=== PATIENT | female | born 1985 | race American Indian/Alaskan Native ===

== ENCOUNTER 2018-11-02 08:25 | Inpatient (IN) | payer OTHER ==
[2018-11-02] MEDS ORDERED: Lactated Ringer's 1,000 ML IV ONE ×2 (08:40→08:43)
[2018-11-02 08:41] VITALS: BMI 38.0
[2018-11-02] MEDS ORDERED: ceFAZolin 2 GM in Sodium Chloride 0.9% 100 ML IVPB ONE (08:43)
[2018-11-02] MEDS ORDERED: Lactated Ringer's 1,000 ML IV SCH (08:45)
[2018-11-02 09:19] LABS: BASO % 0.6 % (0.0-2.0); EOS # 0.1 K/uL (0.0-0.7); EOS % 0.8 % (0.0-4.0); HEMOGLOBIN 10.4 g/dL (12.0-16.0); LYMPH # 1.5 K/uL (1.0-4.3); LYMPH % 21.4 % (20.0-40.0); MEAN CELL VOLUME 76.3 fl (81.0-99.0); MEAN CORPUSCULAR HGB CONC 31.4 g/dL (33.0-37.0); MEAN PLATELET VOLUME 9.8 fl (7.2-11.7); MONO # 0.5 K/uL (0.0-0.8); MONO % 6.3 % (0.0-10.0); NEUT # 5.1 K/uL (1.8-7.0); NEUT % 70.9 % (50.0-75.0); NRBC % 0.2 % (0.0-0.0); RBC 4.36 Mil/uL (3.80-5.20); RED CELL DISTRIBUTION WIDTH 19.2 % (11.5-14.5); WHITE BLOOD COUNT 7.2 K/uL (4.8-10.8)
[2018-11-02] MEDS ORDERED: Oxytocin 30 UNIT 30 UNITS/500 ML BAG IV ONE (09:36)
[2018-11-02] MEDS ORDERED: OXYTOCIN/0.9 % NS 20 UNIT/1,000 ML BAG IV SCH ×2 (09:45→19:26)
[2018-11-02 10:31] VITALS: O2SAT 100
[2018-11-02] MEDS ORDERED: Morphine 1 mg/ml preservative-free Inj(Duramorph) ONE (11:08)
[2018-11-02] MEDS ORDERED: Oxytocin 10 Units/ml Inj ONE (11:44)
[2018-11-02] MEDS ORDERED: Oxycodone/Acetaminophen 5/325 mg Tab PO PRN ×4 (12:25→19:26)
[2018-11-02] MEDS ORDERED: Simethicone 80 mg Chewtab PO SCH (16:00)
--- NOTE | 2018-11-02 16:02 | OBDS ---
DELIVERY PERSONNEL Delivery Doctor: Aidan Betancourt MD Back Seam Stitcher: Debora Posada RN Anesthesiologist: Dr. Fair MATERNAL INFORMATION Delivery Anesthesia: Spinal Medications in Delivery: Pitocin 30 mu/500 mL LR , Pitcoin 20 mu/1000 mL LR Estimated Blood Loss (ml): 800 Placenta Cultured: No Maternal Complications: None Provider Comments: Primary low flap transverse section Via Pfannenstiel incision. Patient delivered viable infant with Apgars of 9 and 9 at 1 and 5 minutes respectively. Normal ut erus, normal tubes and ovaries bilaterally. Moderate amount of abdominal and pelvic adhesions. Estimated blood loss 800 cc Fluids 2600 cc lactated Ringer's Urine output 200 cc of clear urine No complications. Patient tolerated procedure well. Refer to dictation. LABOR SUMMARY EDC: 11/07/2018 00:00 No. Babies in Womb: 1 Attempted: No Labor Anesthesia: Intrathecal LABOR INFORMATION Reason for Induction: Not Applicable Oxytocin: N/A Group B Beta Strep: Negative Antibiotics # of Doses: 1 Antibiotics Time of Last Dose: 1115 Steroids Given: None Reason Steroids Not Administered: Not Applicable MEMBRANES Membranes Rupture Method: Artificial Rupture of Membranes: 11/02/2018 11:39 Length of Rupture (hrs): 0.02 Amniotic Fluid Color: Clear Amniotic Fluid Amount: Moderate Amniotic Fluid Odor: None STAGES OF LABOR Stage 3 hrs: 0 Stage 3 min: 1 CSECTION DELIVERY Primary Indication: Repeat Elective CSection Urgency: N/A CSection Incidence: Repeat Labor: No Labor Elective: Elective CSection Incision: Lower Uterine Transverse Uterine Closure: Single-layer closure BABY A INFORMATION Infant Delivery Date/Time: 11/02/2018 11:40 Method of Delivery: Born in Route : No : N/A Forceps: N/A Vacuum Extraction: N/A Shoulder Dystocia : No SHOULDER DYSTOCIA BABY A Delivery Date/Time: 11/02/2018 11:40 PRESENTATION/POSITION BABY A Presentation: Cephalic Cephalic Presentation: Vertex Breech Presentation: N/A PLACENTA INFORMATION BABY A Placenta Delivery Time : 11/02/2018 11:41 Placenta Method of Delivery: Expressed Placenta Status: Delivered SCORES BABY A Heart Rate 1 min: >100 bpm Resp Effort 1 min: Good Cry Reflex Irritability 1 min: Cough or Sneeze or Pulls Away Muscle Tone 1 min: Active Motion Color 1 min: Body [place], Extremities Blue Resuscitation Effort 1 min: N/A SCORE 1 MIN: 9 Heart Rate 5 min: >100 bpm Resp Effort 5 min: Good Cry Reflex Irritability 5 min: Cough or Sneeze or Pulls Away Muscle Tone 5 min: Active Motion Color 5 min: Body [place], Extremities Blue Resuscitation Effort 5 min: N/A SCORE 5 MIN: 9 INFANT INFORMATION BABY A Gestational Age at Delivery: 39.2 Gestational Status: Term Outcome : Liveborn Condition : Stable Infant Sex: Male WEIGHT/LENGTH BABY A Infant Birthweight (gms): 3880 Weight (lb): 8 Weight (oz): 9 CORD INFORMATION BABY A No. Cord Vessels: 3 Nuchal Cord : N/A Cord Blood Taken: N/A Infant Suction: Mouth; Nose
[2018-11-02] MEDS: Lactated Ringer's 1,000 ML IV SCH (20:00)
[2018-11-02] MEDS: Simethicone 80 mg Chewtab PO SCH (22:07)
--- NOTE | 2018-11-03 00:33 | OP ---
PROCEDURE DATE: 11/02/2018 PREOPERATIVE DIAGNOSIS: Elective repeat section at 39 weeks' gestational age. POSTOPERATIVE DIAGNOSIS: Elective repeat section at 39 weeks' gestational age. OPERATION PERFORMED: Repeat low-flap transverse section via Pfannenstiel incision. COMPLICATIONS: None. ESTIMATED BLOOD LOSS: 800 mL. FLUIDS: 2600 mL lactated Ringer's. URINE OUTPUT: 200 mL of clear urine at the end of procedure. SURGEON: Yo Betancourt MD IT SENIOR SOFTWARE ENGINEER JAVA: Allison Riley MD. Dr. Riley was present from the beginning of the procedure to the end of procedure. Dr. Riley was integral in exposing the surgical field, controlling intraoperative bleeding, removal of intraoperative adhesions, and manual delivery of the . ANESTHESIOLOGIST: Antionette Fair MD ANESTHESIA: Spinal. COMPLICATIONS: None. DESCRIPTION OF PROCEDURE: The patient was taken to the operating room where spinal anesthesia was found to be adequate. The patient was prepped and draped in a normal sterile fashion in the dorsal supine position with leftward tilt. A Pfannenstiel skin incision was made with a scalpel. This was carried down through to the underlying layer of fascia with the scalpel. Midline dissection was made in the fascial layer with the scalpel. The fascial incision was then extended bilaterally sharply with curved Alfonso scissors. The fascial layer was from the underlying rectus muscles both bluntly and sharply with curved Alfonso scissors. The rectus muscles were at the midline. The peritoneum was then identified, tented up with Alicia clamp x2, and entered sharply with Metzenbaum scissors. This peritoneal incision was then extended superiorly and inferiorly with good visualization of the urinary bladder. The vesicouterine peritoneum was identified, tented up with Alicia clamp x2, and entered sharply with Metzenbaum scissors. This peritoneal incision was then extended bilaterally with Metzenbaum scissors. The bladder flap was created digitally. The [place] retractor was placed over the urinary bladder. The uterus was incised with the scalpel. The uterine incision was extended bilaterally bluntly. The 's head was delivered atraumatically. Nose and mouth were suctioned with bulb suction. The remainder of the was delivered without complication. The cord was clamped and cut. The infant was handed off to awaiting pediatricians. The cord gases were collected. Cord blood was collected. The placenta was removed manually. The uterus was cleared of all clots and debris. The uterine incision was repaired with 0 Vicryl in a running, locked fashion. Re-inspection of the uterine incision proved excellent hemostasis. The abdomen and pelvis were irrigated with copious amounts of warm normal saline. Re-inspection of the uterine incision proved excellent hemostasis. All instruments were removed from the patient. The peritoneal layer was closed with a running stitch of 2-0 chromic. The rectus muscles were reapproximated at the midline with a running stitch of 2-0 chromic. The fascial layer was closed with a running stitch of 0 Vicryl. Subcutaneous tissue was closed with a running stitch of 3-0 plain. The skin was closed with krish. The patient tolerated the procedure well. All sponge, lap, and needle counts were correct x2. The patient was given 2 g of Ancef just prior to the beginning of the procedure. There were no complications. The patient was taken to the recovery room in awake and stable condition. Yo Betancourt MD
[2018-11-03] MEDS: Simethicone 80 mg Chewtab PO SCH ×4 (03:08→22:14)
[2018-11-03] MEDS: Lactated Ringer's 1,000 ML IV SCH (04:00)
[2018-11-03 06:48] LABS: HEMOGLOBIN 8.5 g/dL (12.0-16.0); MEAN CELL VOLUME 76.2 fl (81.0-99.0); MEAN CORPUSCULAR HEMOGLOBIN 24.6 pg (27.0-31.0); MEAN CORPUSCULAR HGB CONC 32.3 g/dL (33.0-37.0); RBC 3.46 Mil/uL (3.80-5.20); WHITE BLOOD COUNT 7.8 K/uL (4.8-10.8)
[2018-11-03] MEDS ORDERED: Multivitamin With Minerals Tab PO SCH (09:00)
[2018-11-03] MEDS: Multivitamin With Minerals Tab PO SCH (09:22)
--- NOTE | 2018-11-04 04:42 | OBPPN ---
Datetime: 11/03/2018 09:30 PP Pain Prov: Within normal limits PP Nausea Prov: Denies PP Flatus Prov: Yes PP BM Prov: No PP Breasts Prov: Not Done PP Heart Prov: Normal PP Lungs Prov: Normal PP Abdomen/Uterus Prov: Normal PP Lochia Prov: Normal PP Vulva/Perineum Prov: Normal PP CVA Tenderness Prov: Normal PP Extremities Prov: Normal PP C/S Incision Prov: Normal PP Impression Prov: Normal progression PP Plan Prov: Continue present management PP Progress Note Prov: Late entry for Nov 03 Pt seen on rounds. She feels fine. She states that she feel better than her other deliveries. Sh e just feels cramping. no incisionsal pain H/H 06/07 A: S/P C/S day 1 Anemia - post op - asymptomatic (starting Hb 10) PLAN: continue post op care Vital Signs Provider PP: Reviewed; Within Normal Limits
[2018-11-04] MEDS: Simethicone 80 mg Chewtab PO SCH ×3 (08:17→22:08)
[2018-11-04] MEDS: Multivitamin With Minerals Tab PO SCH (08:17)
--- NOTE | 2018-11-04 11:30 | OBPPN ---
Datetime: 11/04/2018 11:26 PP Pain Prov: Within normal limits PP Nausea Prov: Denies PP Flatus Prov: Yes PP Breasts Prov: Not Done PP Heart Prov: Normal PP Lungs Prov: Normal PP Abdomen/Uterus Prov: Normal PP Lochia Prov: Not Done PP Vulva/Perineum Prov: Not Done PP CVA Tenderness Prov: Normal PP Extremities Prov: Normal PP Impression Prov: Normal progression PP Plan Prov: Continue present management PP Progress Note Prov: Patient doing nwell pain controlled reports minimal lochia VSS afebrile Incicion c/d/i ext no homans POD 2 OOBTC reg diet analgeisa as needed Vital Signs Provider PP: Reviewed
[2018-11-05] MEDS: Simethicone 80 mg Chewtab PO SCH (05:16)
[2018-11-05] MEDS: Multivitamin With Minerals Tab PO SCH (09:17)
[2018-11-05 19:09] VITALS: BP 119/75; PULSE 85; RESP 19; TEMP 98.1
--- NOTE | 2018-11-06 15:00 | OBPPN ---
Datetime: 11/05/2018 14:58 PP Pain Prov: Within normal limits PP Nausea Prov: Denies PP Flatus Prov: Yes PP BM Prov: Yes PP Breasts Prov: Normal PP Heart Prov: Normal PP Lungs Prov: Normal PP Abdomen/Uterus Prov: Normal PP Lochia Prov: Normal PP Vulva/Perineum Prov: Normal PP CVA Tenderness Prov: Normal PP Extremities Prov: Normal PP C/S Incision Prov: Normal PP Progress Prov: Normal PP Impression Prov: Normal progression PP Plan Prov: Continue present management PP Progress Note Prov: Postop day #3 status post repeat patient recovering well Discharge patient home today postop and instructions Follow-up in office in 1 week IP PP Procedures: None Vital Signs Provider PP: Reviewed; Within Normal Limits
--- NOTE | 2018-11-06 15:05 | OBDCSUM ---
Datetime: 11/04/2018 10:57 Discharge Diagnosis, Provider: Term Delivered
== END 2018-11-05 15:02 | disposition home or self-care (01) | DRG 371 ==
LOC: H.EROB2 08:25 → H.L&D 08:40 → H.OB/GYN 15:01
PROVIDERS: ADMIT Obstetrics & Gynecology; ATTEND Obstetrics & Gynecology
PROC: 10D00Z1 Extraction of Products of Conception, Low, Open Approach (ICD-10-PCS; principal; 2018-11-02)
PROC: 4A1HXCZ Monitoring of Products of Conception, Cardiac Rate, External Approach (ICD-10-PCS; 2018-11-02)
DX: O34.211 Maternal care for low transverse scar from previous cesarean delivery (principal); N85.8 Other specified noninflammatory disorders of uterus; Z3A.39 39 weeks gestation of pregnancy; Z37.0 Single live birth; N73.6 Female pelvic peritoneal adhesions (postinfective)